=== PATIENT | female | born 1935 | race Caucasian/White ===

== ENCOUNTER → 2017-04-05 | Day surgery (SDC) | payer MEDICARE ==
[~2017-04-05] VITALS: Ht 157.4 cm; Wt 58.1 kg
[~2017-04-05] MED LIST: ASPIRIN81 M1 PO; ATORVASTATIN CA40 M1 PO; DAYPRO600 M1 PO; EPA FISH OIL1000 MG PO; MONTELUKAST SOD10 MG PO; ROBAXIN750 MG PO; TENORMIN25 MG PO; TYLENOL WITH CO1 TAB PO; VITAMIN D2000 IU PO; ZINC15 M1 PO; ZOCOR40 MG PO
--- NOTE | ~2017-04-05 | O ---
[place], [place] OPERATIVE NOTE [facility]: [id number] UNIT #: [id number] ROOM: DOCTOR: ILA DE JESUS MD BIRTHDATE: [birth year] DOS: 04/05/2017 PREOPERATIVE DIAGNOSIS: Cataract, right eye. POSTOPERATIVE DIAGNOSIS: Cataract, right eye. OPERATION: Extracapsular cataract extraction by phacoemulsification with posterior chamber intraocular lens implantation, right eye. ANESTHESIA: Monitored standby. OPERATIVE FINDINGS AND PROCEDURE: 2% Xylocaine topical anesthetic gel was applied to the eye in the preop area. The patient was taken to the operating room and prepped and draped in the standard fashion for sterile intraocular surgery. A time out procedure was performed verifying correct patient, correct site and corrects lens with Kalyani De Jesus M.D. The operating microscope was swung into position and the lid speculum was inserted. Using a Faith paracentesis blade, a paracentesis was made through clear cornea. Viscoelastic was used to fill the anterior chamber. Using a metal keratome a 2.4 mm self-sealing clear corneal cataract incision was made temporally at the limbus. Using a pre-bent 25 gauge cystotome needle, a standard continuous curvilinear capsulorrhexis was performed. The anterior capsule was removed with forceps. The lens nucleus was hydrodissected and phacoemulsified in the posterior chamber. Cortical material was removed with the irrigation aspiration hand piece and the posterior capsule was then polished with a curet under irrigation. The posterior chamber and capsular bag were filled with viscoelastic. A posterior chamber intraocular lens manufactured by: [employer], Model #[id number], and 24.0 diopters in strength were then inserted into the posterior chamber and within the capsular bag using the lens cartridge and injector system. Viscoelastic was removed using the irrigation aspiration handpiece. The anterior chamber was filled with balanced salt solution through the paracentesis. Both the paracentesis site and cataract incisions were hydrated with BSS and verified to be water-tight and self-sealing. Cefuroxime 1 mg/0.1 mL was injected into the anterior chamber through the paracentesis site. The incision checked to be water-tight using a Weck-Chela sponge. The integrity of the cataract wound and ocular tension were checked. Lid speculum and drapes were removed. The patient was transferred from the operating room to the recovery room in satisfactory condition. [place], [place] OPERATIVE NOTE NAME: GISSEL BROUSSARD V UNIT #: [id number] ROOM: DOCTOR: ILA DE JESUS MD BIRTHDATE: [birth year] ILA DE JESUS MD CM:OPRECORD:OPERATIVE NOTE [id number] ILA DE JESUS MD 04/05/17 1304 interface
[2017-04-05 11:00] VITALS: BP 152/78
[2017-04-05 12:02] VITALS: BP 158/71
[2017-04-05 12:17] VITALS: BP 152/67
[2017-04-05 12:29] VITALS: BP 148/70
== END ==
LOC: SDC 03-30 08:45
DX: H26.9 Unspecified cataract (principal); I10 Essential (primary) hypertension; J45.909 Unspecified asthma, uncomplicated; K21.9 Gastro-esophageal reflux disease without esophagitis; F41.9 Anxiety disorder, unspecified; E04.9 Nontoxic goiter, unspecified; Z86.73 Personal history of transient ischemic attack (TIA), and cerebral infarction without residual deficits; I09.9 Rheumatic heart disease, unspecified; Z90.710 Acquired absence of both cervix and uterus; Z82.49 Family history of ischemic heart disease and other diseases of the circulatory system; Z88.8 Allergy status to other drugs, medicaments and biological substances; Z98.890 Other specified postprocedural states; Z79.899 Other long term (current) drug therapy

== ENCOUNTER → 2017-04-12 | Day surgery (SDC) | payer MEDICARE ==
[~2017-04-12] VITALS: Ht 157.4 cm; Wt 58.1 kg
[~2017-04-12] MED LIST changes: +CEFUROXIME AXE250 MG PO
--- NOTE | ~2017-04-12 | O ---
[place], [place] OPERATIVE NOTE NAME: GISSEL BROUSSARD V UNIT #: [id number] ROOM: DOCTOR: ILA DE JESUS MD BIRTHDATE: [birth year] DOS: 04/12/2017 PREOPERATIVE DIAGNOSIS: Combined forms of age-related cataract, left eye POSTOPERATIVE DIAGNOSIS: Combined forms of age-related cataract, left eye OPERATION: Extracapsular cataract extraction by phacoemulsification with posterior chamber intraocular lens implantation, left eye. ANESTHESIA: Monitored standby. OPERATIVE FINDINGS AND PROCEDURE: 2% Xylocaine topical anesthetic gel was applied to the eye in the preop area. The patient was taken to the operating room and prepped and draped in the standard fashion for sterile intraocular surgery. A time out procedure was performed verifying correct patient, correct site and corrects lens with Kalyani De Jesus M.D. The operating microscope was swung into position and the lid speculum was inserted. Using a Faith paracentesis blade, a paracentesis was made through clear cornea. Viscoelastic was used to fill the anterior chamber. Using a metal keratome a 2.4 mm self-sealing clear corneal cataract incision was made temporally at the limbus. Using a pre-bent 25 gauge cystotome needle, a standard continuous curvilinear capsulorrhexis was performed. The anterior capsule was removed with forceps. The lens nucleus was hydrodissected and phacoemulsified in the posterior chamber. Cortical material was removed with the irrigation aspiration hand piece and the posterior capsule was then polished with a curet under irrigation. The posterior chamber and capsular bag were filled with viscoelastic. A posterior chamber intraocular lens manufactured by: [employer], Model #[id number], and 25.5 diopters in strength were then inserted into the posterior chamber and within the capsular bag using the lens cartridge and injector system. Viscoelastic was removed using the irrigation aspiration handpiece. The anterior chamber was filled with balanced salt solution through the paracentesis. Both the paracentesis site and cataract incisions were hydrated with BSS and verified to be water-tight and self-sealing. Cefuroxime 1 mg/0.1 mL was injected into the anterior chamber through the paracentesis site. The incision checked to be water-tight using a Weck-Chela sponge. The integrity of the cataract wound and ocular tension were checked. Lid speculum and drapes were removed. The patient was transferred from the operating room to the recovery room in satisfactory condition. [place], [place] OPERATIVE NOTE NAME: GISSEL BROUSSARD V UNIT #: [id number] ROOM: DOCTOR: ILA DE JESUS MD BIRTHDATE: [birth year] LIA DE JESUS MD CM:OPRECORD:OPERATIVE NOTE [id number] ILA DE JESUS MD 04/18/17 1019 interface
[2017-04-12 12:50] VITALS: BP 168/81
[2017-04-12 13:43] VITALS: BP 135/75
[2017-04-12 13:56] VITALS: BP 147/77
[2017-04-12 14:12] VITALS: BP 145/72
== END | disposition home or self-care (01) ==
LOC: SDC 04-10 08:20
DX: H25.812 Combined forms of age-related cataract, left eye (principal); I10 Essential (primary) hypertension; Z86.73 Personal history of transient ischemic attack (TIA), and cerebral infarction without residual deficits; J45.909 Unspecified asthma, uncomplicated; K21.9 Gastro-esophageal reflux disease without esophagitis; F41.9 Anxiety disorder, unspecified; Z90.710 Acquired absence of both cervix and uterus; Z82.49 Family history of ischemic heart disease and other diseases of the circulatory system; Z88.8 Allergy status to other drugs, medicaments and biological substances; E78.5 Hyperlipidemia, unspecified; Z98.890 Other specified postprocedural states; Z91.012 Allergy to eggs

== ENCOUNTER 2017-04-15 14:15 | Emergency (ER) | payer MEDICARE ==
[~2017-04-15] VITALS: Ht 157.4 cm; Wt 58.1 kg
[~2017-04-15 14:15] MED LIST changes: -CEFUROXIME AXE250 MG PO
[2017-04-15 15:03] LABS: HEMATOCRIT 41.6 % (37.0-47.0); HEMOGLOBIN 13.5 g/dl (12.0-16.0); MEAN CELL VOLUME 98.8 fl (81.0-99.0); MEAN CORPUSCULAR HGB 32.1 pg (27.0-31.0); MEAN CORPUSCULAR HGB CONC 32.5 g/dl (33.0-37.0); MEAN PLATELET VOLUME 9.5 fl (9.6-12.3); PLATELET COUNT AUTOMATED 252 10*3/uL (130-400); RED BLOOD COUNT 4.21 10*6/uL (4.10-5.10); RED CELL DISTRI WIDTH 13.6 % (0-14.5); WHITE BLOOD COUNT 8.2 10*3/uL (4.8-10.8)
[2017-04-15 15:16] LABS: ALKALINE PHOSPHATASE 87 U/L (45-117); BUN 20 mg/dl (7-24); CHLORIDE 109 mmol/L (98-107); CREATININE 0.85 mg/dL (0.55-1.02); SGOT/AST 21 IU/L (3-35); SGPT/ALT 27 U/L (12-78); SODIUM 143 mmol/L (136-145); TOTAL PROTEIN 8.1 gm/dL (6.4-8.2)
[2017-04-15 15:26] LABS: BASOPHILS 3 % (0-1); PLATELET SUFFICIENCY NORMAL (NORMAL); TOTAL CELLS COUNTED 100 #CELLS
[2017-04-15 15:27] LABS: BURR CELLS FEW
[2017-04-15 18:11] LABS: BILIRUBIN NEGATIVE (NEGATIVE); BLOOD 1+ (NEGATIVE); CLARITY CLEAR (CLEAR); COLOR YELLOW (YELLOW); GLUCOSE NEGATIVE (NEGATIVE); KETONE NEGATIVE (NEGATIVE); LEUKO ESTERASE 1+ (NEGATIVE); NITRITE NEGATIVE (NEGATIVE); PH 6.5 (5.0-9.0); SPECIFIC GRAVITY <= 1.005 (1.005-1.030); UROBILINOGEN 0.2 E.U./dl (0.2-1.0)
[2017-04-15 18:28] LABS: BACTERIA 2+; EPITHELIAL CELLS 0-2
[2017-04-15 18:34] VITALS: BP 166/88
[2017-04-15] MEDS ORDERED: CEFUROXIME AXE250 MG PO (18:39)
== END 2017-04-15 18:40 | disposition home or self-care (01) ==
LOC: ED 14:15
PROVIDERS: Registered Nurse
DX: N39.0 Urinary tract infection, site not specified (principal); I10 Essential (primary) hypertension; E86.0 Dehydration; R42 Dizziness and giddiness; E78.00 Pure hypercholesterolemia, unspecified; Z86.73 Personal history of transient ischemic attack (TIA), and cerebral infarction without residual deficits; Z88.1 Allergy status to other antibiotic agents; Z88.6 Allergy status to analgesic agent; Z88.8 Allergy status to other drugs, medicaments and biological substances; Z88.2 Allergy status to sulfonamides; Z91.012 Allergy to eggs; Z79.82 Long term (current) use of aspirin; Z79.899 Other long term (current) drug therapy

== ENCOUNTER → 2017-04-18 | Outpatient (CLI) | payer MEDICARE ==
[~2017-04-18] MED LIST changes: +CEFUROXIME AXE250 MG PO
== END | disposition home or self-care (01) ==
LOC: CT 04-13 11:00
DX: R93.8 Abnormal findings on diagnostic imaging of other specified body structures (principal); R06.02 Shortness of breath

== ENCOUNTER → 2017-07-10 | Outpatient (CLI) | payer MEDICARE ==
[2017-07-10 13:48] LABS: BUN 29 mg/dl (7-24); CHLORIDE 106 mmol/L (98-107); CHOLESTEROL 167 mg/dL (<200); CPK 111 U/L (26-192); HDL CHOLESTEROL 56 mg/dl (40-60); LDL CHOLESTEROL 77 mg/dL (9-159); SODIUM 140 mmol/L (136-145); TRIGLYCERIDES 172 mg/dl (<150); VLDL CHOLESTEROL 34 mg/dL (6-40)
== END | disposition home or self-care (01) ==
LOC: LAB 12:37
PROVIDERS: Family Medicine
DX: I10 Essential (primary) hypertension (principal); E78.00 Pure hypercholesterolemia, unspecified

== ENCOUNTER 2017-12-13 09:35 | Emergency (ER) | payer MEDICARE ==
[~2017-12-13] VITALS: Wt 58.1 kg
--- NOTE | ~2017-12-13 | EKG ---
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
[2017-12-13 10:29] LABS: ALBUMIN 3.8 gm/dl (3.1-4.5); ALKALINE PHOSPHATASE 75 U/L (45-117); BUN 18 mg/dl (7-24); CHLORIDE 110 mmol/L (98-107); CREATININE 0.92 mg/dL (0.55-1.02); SGOT/AST 32 IU/L (3-35); SGPT/ALT 36 U/L (12-78); SODIUM 140 mmol/L (136-145)
[2017-12-13 10:30] LABS: POTASSIUM 4.4 mmol/L (3.5-5.1); TROPONIN I < 0.015 ng/ml (<0.045)
[2017-12-13 10:34] LABS: BASO # 0.1 10*3/uL (0.0-0.1); BASO % 0.8 % (0.0-1.0); EOS # 0.2 10*3/uL (0.0-0.4); EOS % 3.6 % (1.0-4.0); HEMATOCRIT 38.7 % (37.0-47.0); HEMOGLOBIN 12.7 g/dl (12.0-16.0); LYMPH # 1.5 10*3/uL (1.3-4.4); LYMPH % 22.7 % (27.0-41.0); MEAN CELL VOLUME 100.8 fl (81.0-99.0); MEAN CORPUSCULAR HGB 33.1 pg (27.0-31.0); MEAN CORPUSCULAR HGB CONC 32.8 g/dl (33.0-37.0); MEAN PLATELET VOLUME 9.2 fl (9.6-12.3); MONO # 0.6 10*3/uL (0.1-1.0); MONO % 9.7 % (3.0-9.0); NEUT # 4.2 10*3/uL (2.3-7.9); PLATELET COUNT AUTOMATED 283 10*3/uL (130-400); RED BLOOD COUNT 3.84 10*6/uL (4.10-5.10); RED CELL DISTRI WIDTH 13.7 % (0-14.5); WHITE BLOOD COUNT 6.6 10*3/uL (4.8-10.8)
[2017-12-13 10:49] LABS: ACT PARTIAL THROMBO TIME 24.2 SECONDS (19.5-32.1)
[2017-12-13] MEDS ORDERED: PRILOSEC20 M1 PO (11:40)
[2017-12-13 13:18] VITALS: BP 82/52
== END 2017-12-13 13:10 | disposition left against medical advice (07) ==
LOC: ED 09:35
PROVIDERS: Emergency Medicine
DX: R07.89 Other chest pain (principal); R06.02 Shortness of breath; R05 Cough; I10 Essential (primary) hypertension; Z91.041 Radiographic dye allergy status; Z88.2 Allergy status to sulfonamides; Z88.1 Allergy status to other antibiotic agents; Z91.012 Allergy to eggs; Z88.6 Allergy status to analgesic agent; Z88.8 Allergy status to other drugs, medicaments and biological substances; Z79.899 Other long term (current) drug therapy; Z79.82 Long term (current) use of aspirin

== ENCOUNTER → 2018-06-20 | Outpatient (CLI) | payer MEDICARE ==
[~2018-06-20] MED LIST changes: +PRILOSEC20 M1 PO
[2018-06-20 10:04] LABS: BILIRUBIN NEGATIVE (NEGATIVE); BLOOD TRACE-INTACT (NEGATIVE); CLARITY SL CLOUDY (CLEAR); COLOR YELLOW (YELLOW); GLUCOSE NEGATIVE (NEGATIVE); KETONE NEGATIVE (NEGATIVE); LEUKO ESTERASE 2+ (NEGATIVE); NITRITE POSITIVE (NEGATIVE); UROBILINOGEN 0.2 E.U./dl (0.2-1.0)
[2018-06-20 10:30] LABS: BUN 21 mg/dl (7-24); CHLORIDE 109 mmol/L (98-107); CHOLESTEROL 144 mg/dL (<200); CREATININE 0.92 mg/dL (0.55-1.02); HDL CHOLESTEROL 57 mg/dl (40-60); LDL CHOLESTEROL 60 mg/dL (9-159); POTASSIUM 4.2 mmol/L (3.5-5.1); SODIUM 140 mmol/L (136-145); TRIGLYCERIDES 134 mg/dl (<150); VLDL CHOLESTEROL 27 mg/dL (6-40)
[2018-06-20 10:31] LABS: BACTERIA 3+; WBC 41-50 wbc/hpf (0-5)
== END | disposition home or self-care (01) ==
LOC: LAB 09:33
PROVIDERS: Family Medicine
DX: I10 Essential (primary) hypertension (principal); E78.00 Pure hypercholesterolemia, unspecified; N30.90 Cystitis, unspecified without hematuria

== ENCOUNTER → 2019-02-06 | Outpatient (CLI) | payer MEDICARE ==
[2019-02-06 12:57] LABS: BILIRUBIN NEGATIVE (NEGATIVE); BLOOD TRACE-INTACT (NEGATIVE); CLARITY CLOUDY (CLEAR); COLOR YELLOW (YELLOW); GLUCOSE NEGATIVE (NEGATIVE); KETONE NEGATIVE (NEGATIVE); LEUKO ESTERASE 2+ (NEGATIVE); NITRITE POSITIVE (NEGATIVE); SPECIFIC GRAVITY <= 1.005 (1.005-1.030); UROBILINOGEN 0.2 E.U./dl (0.2-1.0)
[2019-02-06 13:12] LABS: WBC TNTC wbc/hpf (0-5)
[2019-02-06 13:13] LABS: BACTERIA 4+
== END | disposition home or self-care (01) ==
LOC: LAB 12:24
PROVIDERS: Family Medicine
DX: N30.00 Acute cystitis without hematuria (principal)

== ENCOUNTER → 2019-04-03 | Outpatient (CLI) | payer MEDICARE ==
[2019-04-03 13:03] LABS: BILIRUBIN NEGATIVE (NEGATIVE); BLOOD NEGATIVE (NEGATIVE); CLARITY CLEAR (CLEAR); COLOR YELLOW (YELLOW); GLUCOSE NEGATIVE (NEGATIVE); KETONE NEGATIVE (NEGATIVE); LEUKO ESTERASE 2+ (NEGATIVE); NITRITE NEGATIVE (NEGATIVE); SPECIFIC GRAVITY 1.015 (1.005-1.030); UROBILINOGEN 0.2 E.U./dl (0.2-1.0)
[2019-04-03 13:09] LABS: WBC 16-20 wbc/hpf (0-5)
[2019-04-03 13:10] LABS: MUCOUS TRACE
== END | disposition home or self-care (01) ==
LOC: LAB 12:22
PROVIDERS: Family Medicine
DX: N30.00 Acute cystitis without hematuria (principal)

== ENCOUNTER → 2020-05-01 | Outpatient (CLI) | payer MEDICARE ==
[2020-05-01 08:59] LABS: BILIRUBIN Negative (Negative); BLOOD Negative (Negative); CLARITY Clear (Clear); COLOR Yellow (Yellow); GLUCOSE Negative (Negative); KETONE Negative (Negative); LEUKO ESTERASE Negative (Negative); NITRITE Negative (Negative); PH 7.5 (4.5-8.0); UROBILINOGEN 0.2 E.U./dl (0.0-1.0)
[2020-05-01 09:14] LABS: BUN 18 mg/dl (7-24); CHLORIDE 109 mmol/L (98-107); CHOLESTEROL 166 mg/dL (<200); CREATININE 0.88 mg/dL (0.55-1.02); HDL CHOLESTEROL 59 mg/dl (40-60); LDL CHOLESTEROL 73 mg/dL (9-159); POTASSIUM 4.1 mmol/L (3.5-5.1); SODIUM 144 mmol/L (136-145); TRIGLYCERIDES 172 mg/dl (<150); VLDL CHOLESTEROL 34 mg/dL (6-40)
[2020-05-01 09:39] LABS: BACTERIA TRACE
== END | disposition home or self-care (01) ==
LOC: LAB 08:27
PROVIDERS: ATTEND Family Medicine
DX: N30.00 Acute cystitis without hematuria (principal); E78.2 Mixed hyperlipidemia; I10 Essential (primary) hypertension

== ENCOUNTER 2021-03-18 15:37 | Emergency (ER) | payer MEDICARE ==
[~2021-03-18] VITALS: Ht 154.9 cm; Wt 56.2 kg
[2021-03-18 16:11] LABS: BASO # 0.1 10*3/uL (0.0-0.1); BASO % 0.8 % (0.0-1.0); EOS # 0.3 10*3/uL (0.0-0.4); EOS % 3.7 % (1.0-4.0); HEMATOCRIT 39.3 % (37.0-47.0); LYMPH # 2.1 10*3/uL (1.3-4.4); LYMPH % 28.3 % (27.0-41.0); MEAN CORPUSCULAR HGB 31.9 pg (27.0-31.0); MEAN CORPUSCULAR HGB CONC 32.6 g/dl (33.0-37.0); MEAN PLATELET VOLUME 8.7 fl (9.6-12.3); MONO # 0.7 10*3/uL (0.1-1.0); MONO % 8.9 % (3.0-9.0); NEUT # 4.4 10*3/uL (2.3-7.9); PLATELET COUNT AUTOMATED 348 10*3/uL (130-400); RED BLOOD COUNT 4.01 10*6/uL (4.10-5.10); RED CELL DISTRI WIDTH 13.5 % (0-14.5); WHITE BLOOD COUNT 7.6 10*3/uL (4.8-10.8)
[2021-03-18 16:26] LABS: ALBUMIN 3.9 gm/dl (3.1-4.5); ALKALINE PHOSPHATASE 83 U/L (45-117); BUN 16 mg/dl (7-24); CHLORIDE 109 mmol/L (98-107); CREATININE 0.82 mg/dL (0.55-1.02); SGOT/AST 23 IU/L (3-35); SGPT/ALT 36 U/L (12-78); SODIUM 139 mmol/L (136-145); TOTAL PROTEIN 7.8 gm/dL (6.4-8.2)
[2021-03-18 16:45] LABS: BILIRUBIN Negative (Negative); BLOOD Trace-Lysed (Negative); CLARITY Cloudy (Clear); COLOR Yellow (Yellow); GLUCOSE Negative (Negative); KETONE Negative (Negative); LEUKO ESTERASE 3+ (Negative); NITRITE Positive (Negative); PH 7.5 (4.5-8.0); SPECIFIC GRAVITY <= 1.005 (1.001-1.030); UROBILINOGEN 0.2 E.U./dl (0.0-1.0)
[2021-03-18 16:55] LABS: BACTERIA 4+; WBC TNTC wbc/hpf (0-5)
[2021-03-18 16:56] LABS: EPITHELIAL CELLS 0-2
[2021-03-18] MEDS ORDERED: CEFUROXIME AXE500 MG PO (19:16)
[2021-03-18 19:30] VITALS: BP 138/76
== END 2021-03-18 19:26 | disposition home or self-care (01) ==
LOC: ED 15:37
PROVIDERS: Physician Assistant
DX: N39.0 Urinary tract infection, site not specified (principal); Z20.822 Contact with and (suspected) exposure to COVID-19; R42 Dizziness and giddiness; I10 Essential (primary) hypertension; J45.909 Unspecified asthma, uncomplicated; K21.9 Gastro-esophageal reflux disease without esophagitis; Z91.041 Radiographic dye allergy status; Z88.2 Allergy status to sulfonamides; Z88.6 Allergy status to analgesic agent; Z88.8 Allergy status to other drugs, medicaments and biological substances; Z88.1 Allergy status to other antibiotic agents; Z88.4 Allergy status to anesthetic agent; Z79.899 Other long term (current) drug therapy; Z90.710 Acquired absence of both cervix and uterus; Z98.890 Other specified postprocedural states; Z86.73 Personal history of transient ischemic attack (TIA), and cerebral infarction without residual deficits; Z86.718 Personal history of other venous thrombosis and embolism

== ENCOUNTER 2021-03-19 12:23 | Emergency (ER) | payer MEDICARE ==
[~2021-03-19] VITALS: Ht 154.9 cm; Wt 56.2 kg
[~2021-03-19 12:23] MED LIST changes: +CEFUROXIME AXE500 MG PO
[2021-03-19 12:32] VITALS: BP 100/59
[2021-03-19 13:18] LABS: BASO # 0.1 10*3/uL (0.0-0.1); BASO % 0.8 % (0.0-1.0); EOS # 0.3 10*3/uL (0.0-0.4); EOS % 3.5 % (1.0-4.0); MEAN CORPUSCULAR HGB 31.8 pg (27.0-31.0); MEAN CORPUSCULAR HGB CONC 31.8 g/dl (33.0-37.0); MEAN PLATELET VOLUME 8.8 fl (9.6-12.3); MONO # 0.8 10*3/uL (0.1-1.0); MONO % 10.4 % (3.0-9.0); NEUT # 4.5 10*3/uL (2.3-7.9); PLATELET COUNT AUTOMATED 327 10*3/uL (130-400); RED CELL DISTRI WIDTH 13.6 % (0-14.5); WHITE BLOOD COUNT 7.6 10*3/uL (4.8-10.8)
[2021-03-19 13:38] LABS: ALBUMIN 3.4 gm/dl (3.1-4.5); BUN 16 mg/dl (7-24); CHLORIDE 111 mmol/L (98-107); POTASSIUM 3.9 mmol/L (3.5-5.1); SGOT/AST 28 IU/L (3-35); SGPT/ALT 40 U/L (12-78); SODIUM 139 mmol/L (136-145)
[2021-03-19 13:40] LABS: ALKALINE PHOSPHATASE 78 U/L (45-117); TOTAL PROTEIN 7.2 gm/dL (6.4-8.2)
== END 2021-03-19 14:25 | disposition home or self-care (01) ==
LOC: ED 12:23
PROVIDERS: Student in an Organized Health Care Education/Training Program
DX: N39.0 Urinary tract infection, site not specified (principal); R42 Dizziness and giddiness; Z91.041 Radiographic dye allergy status; Z88.2 Allergy status to sulfonamides; Z88.1 Allergy status to other antibiotic agents; Z91.012 Allergy to eggs; Z88.8 Allergy status to other drugs, medicaments and biological substances; Z79.899 Other long term (current) drug therapy; Z79.82 Long term (current) use of aspirin; Z90.710 Acquired absence of both cervix and uterus; Z98.890 Other specified postprocedural states

== ENCOUNTER → 2022-06-22 | Outpatient (CLI) | payer MEDICARE ==
[2022-06-22 09:58] LABS: BUN 16 mg/dl (9-23); CHLORIDE 106 mmol/L (98-107); CHOLESTEROL 161 mg/dL (<200); LDL CHOLESTEROL 79 mg/dL (9-159); POTASSIUM 3.9 mmol/L (3.4-5.1); TRIGLYCERIDES 110 mg/dl (<150)
== END | disposition home or self-care (01) ==
LOC: LAB 09:01
PROVIDERS: ATTEND Family Medicine
DX: I10 Essential (primary) hypertension (principal)

== ENCOUNTER → 2023-05-22 | Outpatient (CLI) | payer MEDICARE | END | disposition home or self-care (01) | LOC: LAB 01:28 → US 08:30 | PROVIDERS: ATTEND Internal Medicine Hematology & Oncology | DX: N28.1 Cyst of kidney, acquired (principal); R74.01 Elevation of levels of liver transaminase levels; I10 Essential (primary) hypertension; E78.5 Hyperlipidemia, unspecified; K76.89 Other specified diseases of liver; Z87.19 Personal history of other diseases of the digestive system; Z90.49 Acquired absence of other specified parts of digestive tract ==

== ENCOUNTER 2023-07-05 08:07 | Emergency (ER) | payer MEDICARE ==
[~2023-07-05] VITALS: Ht 152.4 cm; Wt 51.3 kg
[~2023-07-05 08:07] MED LIST changes: +ANTIVERT25 M2 PO; +CLINDAMYCIN HC300 MG PO
[2023-07-05 08:45] VITALS: BP 163/70
[2023-07-05 09:21] LABS: BASO # 0.1 10*3/uL (0.0-0.1); EOS # 0.4 10*3/uL (0.0-0.4); EOS % 4.8 % (1.0-4.0); HEMATOCRIT 39.4 % (37.0-47.0); LYMPH # 2.1 10*3/uL (1.3-4.4); LYMPH % 25.5 % (27.0-41.0); MEAN CORPUSCULAR HGB 31.8 pg (27.0-31.0); MEAN CORPUSCULAR HGB CONC 31.5 g/dl (33.0-37.0); MEAN PLATELET VOLUME 8.6 fl (9.6-12.3); MONO # 0.8 10*3/uL (0.1-1.0); MONO % 9.4 % (3.0-9.0); NEUT # 4.9 10*3/uL (2.3-7.9); NEUT % 59.1 % (47.0-73.0); PLATELET COUNT AUTOMATED 364 10*3/uL (130-400); RED CELL DISTRI WIDTH 14.3 % (0-14.5); WHITE BLOOD COUNT 8.3 10*3/uL (4.8-10.8)
[2023-07-05 09:23] LABS: BILIRUBIN Negative (Negative); BLOOD Negative (Negative); CLARITY Clear (Clear); COLOR Dark Yellow (Yellow); GLUCOSE Negative (Negative); KETONE Negative (Negative); LEUKO ESTERASE Negative (Negative); NITRITE Positive (Negative); PH 7.5 (4.5-8.0); SPECIFIC GRAVITY <= 1.005 (1.001-1.030); UROBILINOGEN 0.2 E.U./dl (0.0-1.0)
[2023-07-05 09:32] LABS: EPITHELIAL CELLS 0-2; WBC 0-2 wbc/hpf (0-5)
[2023-07-05 09:55] LABS: ALKALINE PHOSPHATASE 72 U/L (46-116); BUN 12 mg/dl (9-23); CHLORIDE 107 mmol/L (98-107); POTASSIUM 4.6 mmol/L (3.4-5.1); SGPT/ALT 50 U/L (5-49); TOTAL PROTEIN 7.7 gm/dL (6.0-8.0)
[2023-07-05] MEDS ORDERED: Meclizine25 MG PO (10:10)
[2023-07-05] MEDS ORDERED: Meclizine Hydrochloride 25 MG TAB PO ONE (10:10)
== END 2023-07-05 10:20 | disposition home or self-care (01) ==
LOC: ED 08:07
PROVIDERS: Internal Medicine
DX: R42 Dizziness and giddiness (principal); R35.0 Frequency of micturition; R30.9 Painful micturition, unspecified; Z91.041 Radiographic dye allergy status; Z88.2 Allergy status to sulfonamides; Z88.1 Allergy status to other antibiotic agents; Z88.8 Allergy status to other drugs, medicaments and biological substances; Z91.012 Allergy to eggs; Z88.6 Allergy status to analgesic agent; Z79.2 Long term (current) use of antibiotics; Z79.899 Other long term (current) drug therapy; Z79.82 Long term (current) use of aspirin; Z90.711 Acquired absence of uterus with remaining cervical stump; Z98.890 Other specified postprocedural states

== ENCOUNTER → 2023-12-15 | Outpatient (CLI) | payer MEDICARE ==
[~2023-12-15] MED LIST changes: +Meclizine25 MG PO
== END | disposition home or self-care (01) ==
LOC: RAD 11:01
PROVIDERS: ATTEND Family Medicine
DX: M19.012 Primary osteoarthritis, left shoulder (principal); M41.84 Other forms of scoliosis, thoracic region; M25.512 Pain in left shoulder; M54.6 Pain in thoracic spine